=== PATIENT | female | born 1955 | race Caucasian/White ===

== ENCOUNTER 2024-10-02 22:52 | Emergency (ER) | payer MEDICARE ==
[2024-10-02] MEDS ORDERED: Amiodarone 150 MG/3 ML VIAL ONE (22:57)
[2024-10-02] MEDS ORDERED: Sodium Bicarb 50 MEQ/50 ML Abboject 8.4% SYRINGE ONE (22:57)
[2024-10-02] MEDS ORDERED: EPINEPHrine 1 MG/10 ML Abboject SYRINGE ONE (22:57)
[2024-10-02] MEDS ORDERED: Calcium Chloride 1 GM/10 ML Abboject SYRINGE ONE (22:57)
== END 2024-10-02 23:08 | disposition expired ==
LOC: ERS 22:52
DX: I46.9 Cardiac arrest, cause unspecified (principal); I13.10 Hypertensive heart and chronic kidney disease without heart failure, with stage 1 through stage 4 chronic kidney disease, or unspecified chronic kidney disease; E11.22 Type 2 diabetes mellitus with diabetic chronic kidney disease; N18.9 Chronic kidney disease, unspecified
CPT/HCPCS: J0171; J0282; 92950; 96374; 96375